=== PATIENT | male | born 1950 | race African-American/Black ===

== ENCOUNTER 2018-09-11 12:00 | Inpatient (IN) | payer MEDICARE, OTHER ==
[~2018-09-11] VITALS: Ht 177.8 cm; Wt 77.1 kg
[2018-09-11 12:03] VITALS: BP 148/72
[2018-09-11] MEDS ORDERED: METOPROLOL SUC100 MG ORAL (12:27)
[2018-09-11] MEDS ORDERED: ATORVASTATIN CA40 MG ORAL (12:27)
[2018-09-11] MEDS ORDERED: FLOMAX0.4 MG ORAL (12:27)
[2018-09-11] MEDS ORDERED: BENZTROPINE ME0.5 MG PO (12:27)
[2018-09-11] MEDS ORDERED: MELOXICAM7.5 MG PO (12:27)
[2018-09-11] MEDS ORDERED: HALOPERIDOL1 MG ORAL (12:27)
[2018-09-11] MEDS ORDERED: KEPPRA500 M4 ORAL (12:27)
[2018-09-11] MEDS ORDERED: Sodium Chloride 500ML 500 ML IV ONE ×2 (12:42→14:45)
[2018-09-11 13:16] LABS: BASOPHILS % (AUTO) 1.3 % (0.0-2.0); EOSINOPHILS % (AUTO) 1.2 % (0.0-3.0); HEMATOCRIT 36.4 % (42.0-52.0); HEMOGLOBIN 12.6 G/DL (14.2-18.0); LYMPHOCYTES % (AUTO) 33.8 % (20.0-45.0); MEAN CORPUSCULAR VOLUME 94 FL (80-99); NEUTROPHILS % (AUTO) 50.7 % (45.0-75.0); PLATELET COUNT 189 K/UL (150-450); RED BLOOD COUNT 3.86 M/UL (4.70-6.10); RED CELL DISTRIBUTION WIDTH 12.2 % (11.6-14.8); WHITE BLOOD COUNT 6.3 K/UL (4.8-10.8)
--- NOTE | 2018-09-11 13:19 | Emergency Room Report ---
History of Present Illness General Chief Complaint: Generalized Weakness Source: Medical Record, EMS Present Illness HPI Patient present from nursing facility by paramedics it was reported the patient appeared to weaker than usual Fatigue decreased oral intake Patient himself requires significant arousal in order to open eyes however is not verbal with us History of present illness is significantly limited There was no reports of vomiting or diarrhea There was no other reports of trauma The onset of change in mental status is unclear Allergies: Coded Allergies: PENICILLINS (Verified Allergy, Unknown, 09/11/18) Patient History Past Medical History: see triage record Pertinent Family History: none Reviewed Nursing Documentation: PMH: Agreed; PSxH: Agreed Nursing Documentation-PMH Past Medical History: No History, Except For Hx Cardiac Problems: Yes - CAD, [place] History Of Psychiatric Problem: Yes - Paranoid schizophrenia Hx Seizures: Yes Review of Systems All Other Systems: limited - Other than the ones mentioned in the history of present illness all others are reviewed however they do stay limited due to the patient's mental status Physical Exam Vital Signs Date Time Temp Pulse Resp B/P (MAP) Pulse Ox O2 Delivery O2 Flow Rate FiO2 09/11/18 12:03 60 18 Room Air 09/11/18 12:03 97.5 148/72 96 Sp02 EP Interpretation: reviewed, normal General Appearance: no apparent distress Head: normocephalic, atraumatic Eyes: bilateral eye PERRL ENT: dry mucus membranes Neck: supple Respiratory: lungs clear, no retraction, no accessory muscle use Cardiovascular #1: regular rate, rhythm, no edema Gastrointestinal: non tender, soft Musculoskeletal: other - Patient has left hand contracted, responds to physical stimuli however not following commands Neurologic: responsive - To physical stimuli Skin: normal color, no rash Lymphatic: no adenopathy Medical Decision Making Diagnostic Impression: Primary Impression: Weakness Additional Impressions: Dehydration Encephalopathy ER Course Patient is a fairly complex patient with multiple differential to consideration including but not limited to cardiac cardiopulmonary, neurological, neurosurgical, infectious and vascular emergencies Patient CT head shows previous CVAs no obvious acute pathology Blood work is appropriate patient has further hydration provided Given the patient's weakness and change in status acute CVA needs to be still considered Patient's last well-known is over 24 hours and the patient is not a candidate for any thrombotic therapy Labs Test 09/11/18 12:30 09/11/18 13:29 09/11/18 13:30 White Blood Count 6.3 K/UL (4.8-10.8) Red Blood Count 3.86 M/UL (4.70-6.10) Hemoglobin 12.6 G/DL (14.2-18.0) Hematocrit 36.4 % (42.0-52.0) Mean Corpuscular Volume 94 FL (80-99) Mean Corpuscular Hemoglobin 32.8 PG (27.0-31.0) Mean Corpuscular Hemoglobin Concent 34.7 G/DL (32.0-36.0) Red Cell Distribution Width 12.2 % (11.6-14.8) Platelet Count 189 K/UL (150-450) Mean Platelet Volume 5.6 FL (6.5-10.1) Neutrophils (%) (Auto) 50.7 % (45.0-75.0) Lymphocytes (%) (Auto) 33.8 % (20.0-45.0) Monocytes (%) (Auto) 13.0 % (1.0-10.0) Eosinophils (%) (Auto) 1.2 % (0.0-3.0) Basophils (%) (Auto) 1.3 % (0.0-2.0) Sodium Level 141 MMOL/L (136-145) Potassium Level 3.7 MMOL/L (3.5-5.1) Chloride Level 109 MMOL/L (98-107) Carbon Dioxide Level 25 MMOL/L (21-32) Anion Gap 7 mmol/L (5-15) Blood Urea Nitrogen 13 mg/dL (7-18) Creatinine 0.7 MG/DL (0.55-1.30) Estimat Glomerular Filtration Rate > 60 mL/min (>60) Glucose Level 85 MG/DL (74-106) Calcium Level 8.4 MG/DL (8.5-10.1) Total Bilirubin 0.7 MG/DL (0.2-1.0) Aspartate Amino Transf (AST/SGOT) 44 U/L (15-37) Alanine Aminotransferase (ALT/SGPT) 25 U/L (12-78) Alkaline Phosphatase 81 U/L (46-116) Total Creatine Kinase 1015 U/L (26-308) Creatine Kinase MB 14.4 NG/ML (0.0-3.6) Creatine Kinase MB Relative Index 1.4 Troponin I 0.007 ng/mL (0.000-0.056) Pro-B-Type Natriuretic Peptide 1344 pg/mL (0-125) Total Protein 6.5 G/DL (6.4-8.2) Albumin 3.1 G/DL (3.4-5.0) Globulin 3.4 g/dL Albumin/Globulin Ratio 0.9 (1.0-2.7) Lipase 41 U/L (73-393) Urine Color Yellow Urine Appearance Clear Urine pH 5 (4.5-8.0) Urine Specific [place] 1.025 (1.005-1.035) Urine Protein 2+ (NEGATIVE) Urine Glucose (UA) 1+ (NEGATIVE) Urine Ketones 1+ (NEGATIVE) Urine Blood 3+ (NEGATIVE) Urine Nitrite Negative (NEGATIVE) Urine Bilirubin Negative (NEGATIVE) Urine Urobilinogen 1 MG/DL (0.0-1.0) Urine Leukocyte Esterase 1+ (NEGATIVE) Urine RBC 2-4 /HPF (0 - 0) Urine WBC 0-2 /HPF (0 - 0) Urine Squamous Epithelial Cells Occasional /LPF Urine Bacteria Occasional /HPF (NONE) Urine Mucus Moderate /LPF (NONE/OCC) Rhythm Strip Diag. Results EP Interpretation: yes Rate: 78 Rhythm: NSR, no PVC's, no ectopy Chest X-Ray Diagnostic Results Chest X-Ray Diagnostic Results : Chest X-Ray Ordered: Yes # of Views/Limited/Complete: 1 View Indication: Chest Pain EP Interpretation: Yes Interpretation: no consolidation, no effusion, no pneumothorax Impression: No acute disease Electronically Signed by: Tino Bowser DO CT/MRI/US Diagnostic Results CT/MRI/US Diagnostic Results : Impression CT headImpression: Chronic and age-related changes, as described. Multiple old infarcts Negative for acute intracranial bleed or mass effect Last Vital Signs Date Time Temp Pulse Resp B/P (MAP) Pulse Ox O2 Delivery O2 Flow Rate FiO2 09/11/18 12:03 97.5 60 18 148/72 96 Room Air Status: improved Disposition: ADMITTED INPATIENT Condition: Serious Referrals: NON PHYSICIAN (PCP) Tino Bowser DO Sep 11, 2018 13:19
[2018-09-11 13:35] VITALS: BP 107/57
[2018-09-11 13:52] LABS: APPEARANCE,URINE CLEAR; BILIRUBIN, URINE NEGATIVE (NEGATIVE); GLUCOSE, URINE (UA) 1+ (NEGATIVE); KETONES,URINE 1+ (NEGATIVE); LEUKOCYTE ESTERASE ,URINE 1+ (NEGATIVE); NITRITE,URINE NEGATIVE (NEGATIVE); PH,URINE 5 (4.5-8.0); PROTEIN,URINE 2+ (NEGATIVE); UROBILINOGEN,URINE 1 MG/DL (0.0-1.0)
[2018-09-11 13:52] LABS: ANION GAP 7 mmol/L (5-15); BLOOD UREA NITROGEN 13 mg/dL (7-18); CALCIUM 8.4 MG/DL (8.5-10.1); CARBON DIOXIDE 25 MMOL/L (21-32); CHLORIDE 109 MMOL/L (98-107); CREATININE 0.7 MG/DL (0.55-1.30); POTASSIUM 3.7 MMOL/L (3.5-5.1); SODIUM 141 MMOL/L (136-145)
[2018-09-11 14:01] LABS: COLOR,URINE YELLOW
[2018-09-11 14:08] LABS: ALANINE AMINOTRANSFERASE 25 U/L (12-78); ALBUMIN 3.1 G/DL (3.4-5.0); ALBUMIN/GLOBULIN RATIO 0.9 (1.0-2.7); ALKALINE PHOSPHATASE 81 U/L (46-116); ASPARTATE AMINO TRANSFERASE 44 U/L (15-37); BILIRUBIN,TOTAL 0.7 MG/DL (0.2-1.0); CKMB 14.4 NG/ML (0.0-3.6); CREATINE KINASE 1015 U/L (26-308)
--- NOTE | 2018-09-11 14:18 | Diagnostic Imaging Report ---
Indications: Altered mental status Technique: Spiral acquisitions obtained through the brain. Angled axial and coronal 5 x 5 mm slices were reconstructed. Total dose length product 1277.56 mGycm. CTDI vol(s) 70.38 mGy. Dose reduction achieved using automated exposure control Comparison: None. Findings: There is a small area of encephalomalacia in the right parietal lobe near the vertex. There is also some encephalomalacia in the right parietal operculum and of the left posterior parietal lobe, as well as old infarcts in the bilateral cerebellar hemispheres.. There is mild age-related enlargement of the ventricles and extra axial CSF spaces. There is considerable periventricular deep white matter low-attenuation, consistent with chronic ischemic change. No acute intracranial hemorrhage or edema. No mass effect nor midline shift. The calvarium is intact. Visualized orbits and sinuses are unremarkable. The mastoids are clear. Impression: Chronic and age-related changes, as described. Multiple old infarcts Negative for acute intracranial bleed or mass effect The CT scanner at [facility] is accredited by the [employer] and the scans are performed using protocols designed to limit radiation exposure to as low as reasonably achievable to attain images of sufficient resolution adequate for diagnostic evaluation.
--- NOTE | 2018-09-11 14:19 | Diagnostic Imaging Report ---
Indication: Chest pain Technique: One view of the chest Comparison: none Findings: The heart is borderline enlarged. The aorta is tortuous and calcified. Upper mediastinum is unremarkable. The lungs and pleural spaces are clear Impression: Borderline cardiomegaly No acute process
[2018-09-11 15:30] VITALS: BP 154/65
[2018-09-11 17:30] VITALS: BP 156/90
[2018-09-11] MEDS ORDERED: HALDOL5 MG ORAL (17:46)
[2018-09-11 19:40] VITALS: BP 142/66
[2018-09-11 20:30] VITALS: BP 163/80
[2018-09-11] MEDS: Heparin 5000 units/ml inj SUBQ SCH (22:30)
[2018-09-11] MEDS: Metoprolol Succinate XL 100mg tab ORAL SCH (22:53)
[2018-09-11] MEDS: Atorvastatin 80mg tab ORAL SCH (22:53)
[2018-09-11] MEDS: 1/2NS w/KCl 20mEq 1000ml 1,000 ML IV SCH (22:54)
[2018-09-12] VITALS: BP 151/83
[2018-09-12 04:00] VITALS: BP 161/71
[2018-09-12 07:48] LABS: BASOPHILS % (AUTO) 0.9 % (0.0-2.0); EOSINOPHILS % (AUTO) 1.1 % (0.0-3.0); HEMATOCRIT 39.3 % (42.0-52.0); HEMOGLOBIN 13.6 G/DL (14.2-18.0); LYMPHOCYTES % (AUTO) 17.7 % (20.0-45.0); MEAN CORPUSCULAR VOLUME 97 FL (80-99); MONOCYTES % (AUTO) 10.6 % (1.0-10.0); NEUTROPHILS % (AUTO) 69.8 % (45.0-75.0); PLATELET COUNT 195 K/UL (150-450); RED BLOOD COUNT 4.06 M/UL (4.70-6.10); RED CELL DISTRIBUTION WIDTH 12.2 % (11.6-14.8); WHITE BLOOD COUNT 7.9 K/UL (4.8-10.8)
[2018-09-12 07:54] LABS: ANION GAP 8 mmol/L (5-15); BLOOD UREA NITROGEN 9 mg/dL (7-18); CARBON DIOXIDE 25 MMOL/L (21-32); CHLORIDE 106 MMOL/L (98-107); CREATININE 0.6 MG/DL (0.55-1.30); POTASSIUM 4.7 MMOL/L (3.5-5.1); SODIUM 139 MMOL/L (136-145)
[2018-09-12 08:00] VITALS: BP 122/68
[2018-09-12] MEDS: Benztropine 1mg tab ORAL SCH ×2 (08:56→18:00)
[2018-09-12] MEDS: Tamsulosin 0.4mg cap ORAL SCH ×2 (08:56→18:00)
[2018-09-12] MEDS: Metoprolol Succinate XL 100mg tab ORAL SCH (08:57)
[2018-09-12] MEDS: Heparin 5000 units/ml inj SUBQ SCH ×2 (08:57→20:35)
[2018-09-12] MEDS ORDERED: Metoprolol Succinate XL 100mg tab ORAL SCH (09:00)
[2018-09-12] MEDS ORDERED: LORazepam Inj 2mg/ml 1ml IM SCH (11:12)
[2018-09-12] MEDS: DiphenhydrAMINE 50mg/ml Inj IM SCH ×2 (11:12→12:30)
[2018-09-12] MEDS ORDERED: Haloperidol 5mg/ml Inj IM SCH (11:14)
[2018-09-12 12:00] VITALS: BP 128/74
--- NOTE | 2018-09-12 12:11 | Consultation ---
History of Present Illness General Chief Complaint: Generalized Weakness Present Illness HPI 68-year-old -[place] male who was transferred from [facility] to this hospital due to confusion and recurrent falls. the pt is disorganized and agitated the pt is confused and unable to provide hx. the pt has memory impairment Allergies: Coded Allergies: PENICILLINS (Verified Allergy, Unknown, 09/11/18) Medication History Scheduled Atorvastatin Calcium* (Atorvastatin Calcium*), 80 MG ORAL BEDTIME, (Reported) Benztropine Mesylate* (Cogentin*), 1 MG PO BID, (Reported) Haloperidol (Haloperidol), 5 MG ORAL BID, (Reported) Levetiracetam (Keppra), 500 MG ORAL EVERY 12 HOURS, (Reported) Meloxicam* (Meloxicam*), 7.5 MG PO BID, (Reported) Metoprolol Succinate* (Metoprolol Succinate*), 100 MG ORAL DAILY, (Reported) Tamsulosin HCl (Flomax), 0.4 MG ORAL BID, (Reported) Discontinued Medications Haloperidol* (Haldol*), 5 MG ORAL BID, (Reported) Discontinued Reason: Prescription changed Patient History Limited by: medical condition History Provided By: Patient, Medical Record, PMD Healthcare decision maker N Resuscitation status Full Code Advanced Directive on File Past Medical/Surgical History Past Medical/Surgical History: (1) Dehydration (2) Encephalopathy (3) Weakness Review of Systems Psychiatric: Reports: prior hx, anxiety, depressed feelings Physical Exam General Appearance: alert, lethargic, confused, moderate distress, agitated Last 24 Hour Vital Signs Date Time Temp Pulse Resp B/P (MAP) Pulse Ox O2 Delivery O2 Flow Rate FiO2 09/12/18 10:16 69 122/68 09/12/18 09:00 Room Air 09/12/18 08:57 69 122/68 09/12/18 06:00 65 62 09/12/18 04:00 97.8 57 19 161/71 (101) 96 09/12/18 00:06 Room Air 09/12/18 00:00 98.3 67 20 151/83 (105) 96 09/11/18 22:53 67 163/80 09/11/18 20:30 97.8 67 20 163/80 (107) 95 09/11/18 19:45 98.0 72 16 142/66 99 Room Air 09/11/18 19:40 98.0 72 16 142/66 99 Room Air 09/11/18 17:30 98.3 62 15 156/90 99 Room Air 09/11/18 15:30 97.9 57 19 154/65 97 Room Air 09/11/18 13:35 97.8 58 14 107/57 100 Room Air Intake and Output 09/11/18 09/12/18 19:00 07:00 Intake Total 1000 ml 120 ml Output Total 0 ml 300 ml Balance 1000 ml -180 ml Intake Oral 120 ml IV Total 1000 ml Output Urine Total 0 ml 300 ml # Bowel Movements 1 Laboratory Tests Test 09/11/18 12:30 09/11/18 13:29 09/11/18 13:30 09/12/18 06:45 White Blood Count 6.3 K/UL (4.8-10.8) 7.9 K/UL (4.8-10.8) Red Blood Count 3.86 M/UL (4.70-6.10) L 4.06 M/UL (4.70-6.10) L Hemoglobin 12.6 G/DL (14.2-18.0) L 13.6 G/DL (14.2-18.0) L Hematocrit 36.4 % (42.0-52.0) L 39.3 % (42.0-52.0) L Mean Corpuscular Volume 94 FL (80-99) 97 FL (80-99) Mean Corpuscular Hemoglobin 32.8 PG (27.0-31.0) H 33.5 PG (27.0-31.0) H Mean Corpuscular Hemoglobin Concent 34.7 G/DL (32.0-36.0) 34.6 G/DL (32.0-36.0) Red Cell Distribution Width 12.2 % (11.6-14.8) 12.2 % (11.6-14.8) Platelet Count 189 K/UL (150-450) 195 K/UL (150-450) Mean Platelet Volume 5.6 FL (6.5-10.1) L 6.5 FL (6.5-10.1) Neutrophils (%) (Auto) 50.7 % (45.0-75.0) 69.8 % (45.0-75.0) Lymphocytes (%) (Auto) 33.8 % (20.0-45.0) 17.7 % (20.0-45.0) L Monocytes (%) (Auto) 13.0 % (1.0-10.0) H 10.6 % (1.0-10.0) H Eosinophils (%) (Auto) 1.2 % (0.0-3.0) 1.1 % (0.0-3.0) Basophils (%) (Auto) 1.3 % (0.0-2.0) 0.9 % (0.0-2.0) Sodium Level 141 MMOL/L (136-145) 139 MMOL/L (136-145) Potassium Level 3.7 MMOL/L (3.5-5.1) 4.7 MMOL/L (3.5-5.1) Chloride Level 109 MMOL/L (98-107) H 106 MMOL/L (98-107) Carbon Dioxide Level 25 MMOL/L (21-32) 25 MMOL/L (21-32) Anion Gap 7 mmol/L (5-15) 8 mmol/L (5-15) Blood Urea Nitrogen 13 mg/dL (7-18) 9 mg/dL (7-18) Creatinine 0.7 MG/DL (0.55-1.30) 0.6 MG/DL (0.55-1.30) Estimat Glomerular Filtration Rate > 60 mL/min (>60) > 60 mL/min (>60) Glucose Level 85 MG/DL (74-106) 86 MG/DL (74-106) Calcium Level 8.4 MG/DL (8.5-10.1) L 9.0 MG/DL (8.5-10.1) Total Bilirubin 0.7 MG/DL (0.2-1.0) Aspartate Amino Transf (AST/SGOT) 44 U/L (15-37) H Alanine Aminotransferase (ALT/SGPT) 25 U/L (12-78) Alkaline Phosphatase 81 U/L (46-116) Total Creatine Kinase 1015 U/L (26-308) H Creatine Kinase MB 14.4 NG/ML (0.0-3.6) H Creatine Kinase MB Relative Index 1.4 Troponin I 0.007 ng/mL (0.000-0.056) Pro-B-Type Natriuretic Peptide 1344 pg/mL (0-125) H Total Protein 6.5 G/DL (6.4-8.2) Albumin 3.1 G/DL (3.4-5.0) L Globulin 3.4 g/dL Albumin/Globulin Ratio 0.9 (1.0-2.7) L Lipase 41 U/L (73-393) L Urine Color Yellow Urine Appearance Clear Urine pH 5 (4.5-8.0) Urine Specific [place] 1.025 (1.005-1.035) Urine Protein 2+ (NEGATIVE) H Urine Glucose (UA) 1+ (NEGATIVE) H Urine Ketones 1+ (NEGATIVE) H Urine Blood 3+ (NEGATIVE) H Urine Nitrite Negative (NEGATIVE) Urine Bilirubin Negative (NEGATIVE) Urine Urobilinogen 1 MG/DL (0.0-1.0) H Urine Leukocyte Esterase 1+ (NEGATIVE) H Urine RBC 2-4 /HPF (0 - 0) H Urine WBC 0-2 /HPF (0 - 0) Urine Squamous Epithelial Cells Occasional /LPF Urine Bacteria Occasional /HPF (NONE) Urine Mucus Moderate /LPF (NONE/OCC) H Magnesium Level 1.2 MG/DL (1.8-2.4) L Height (Feet): 5 Height (Inches): 10.00 Weight (Pounds): 170 Medications Current Medications Medications (Trade) Dose Ordered Sig/Tessa Route PRN Reason Start Time Stop Time Status Last Admin Dose Admin Amlodipine Besylate (Norvasc) 10 mg DAILY ORAL 09/12/18 09:03 10/12/18 09:02 09/12/18 10:16 Atorvastatin Calcium (Lipitor) 80 mg BEDTIME ORAL 09/11/18 22:30 10/11/18 22:29 09/11/18 22:53 Benztropine Mesylate (Cogentin) 1 mg BID ORAL 09/12/18 09:00 10/12/18 08:59 09/12/18 08:56 Diphenhydramine HCl (Benadryl) 50 mg ONCE IM 09/12/18 11:12 09/12/18 12:12 Haloperidol (Haldol) 5 mg BID ORAL 09/12/18 09:00 10/12/18 08:59 09/12/18 08:56 Haloperidol Lactate (Haldol) 5 mg ONCE IM 09/12/18 11:14 09/12/18 12:14 Heparin Sodium (Porcine) (Heparin 5000 units/ml) 5,000 units EVERY 12 HOURS SUBQ 09/11/18 22:30 10/11/18 22:29 09/12/18 08:57 Levetiracetam (Keppra) 500 mg EVERY 12 HOURS ORAL 09/11/18 22:30 10/11/18 22:29 09/12/18 08:56 Lorazepam (Ativan 2mg/ml 1ml) 2 mg ONCE IM 09/12/18 11:12 09/12/18 12:12 Magnesium Sulfate 100 ml @ 100 mls/hr Q1H IVPB 09/12/18 09:30 09/12/18 13:29 09/12/18 10:16 Metoprolol Succinate (Toprol XL) 100 mg DAILY ORAL 09/11/18 22:30 10/12/18 08:59 09/12/18 08:57 Quetiapine Fumarate (SEROquel) 25 mg Q4H PRN ORAL AGITATION 09/12/18 10:45 10/12/18 10:44 09/12/18 10:54 Sodium 1,000 ml @ 65 mls/hr [id number] IV 09/11/18 22:15 10/11/18 22:14 09/11/18 22:54 Tamsulosin HCl (Flomax) 0.4 mg BID ORAL 09/12/18 09:00 10/12/18 08:59 09/12/18 08:56 Assessment/Plan Problem List: (1) Encephalopathy ICD Codes: G93.40 - Encephalopathy, unspecified SNOMED: 21748925 Status: stable Assessment/Plan seroquel prn haldol im prn dc sitter soft restraints Priscilla Flood MD Sep 12, 2018 12:11
[2018-09-12] MEDS ORDERED: DiphenhydrAMINE 50mg/ml Inj IM SCH (12:30)
[2018-09-12] MEDS: 1/2NS w/KCl 20mEq 1000ml 1,000 ML IV SCH (15:54)
[2018-09-12 16:00] VITALS: BP 157/74
[2018-09-12 20:00] VITALS: BP 145/73
--- NOTE | 2018-09-12 20:15 | History and Physical Report ---
DATE OF ADMISSION: 09/11/2018 CHIEF COMPLAINT: Recurrent falls. HISTORY OF PRESENT ILLNESS: This is a 68-year-old -[place] male who was transferred from [facility] to this hospital due to confusion and recurrent falls. The patient is very confused and unable to give any further information. PAST MEDICAL HISTORY: 1. Organic brain syndrome. 2. Degenerative joint disease. 3. Hypertensive cardiovascular disease. 4. Hyperlipidemia. 5. Benign prostatic hypertrophy. MEDICATIONS: Benztropine, Haldol, meloxicam, metoprolol succinate, atorvastatin, Keppra, and tamsulosin. ALLERGIES: No known allergies. FAMILY HISTORY: Unable to obtain due to mental status. SOCIAL HISTORY: Unable to obtain due to mental status. REVIEW OF SYSTEMS: Unable to obtain due to mental status. PHYSICAL EXAMINATION: GENERAL: This is an elderly cachectic -[place] male, who is in no acute distress. VITAL SIGNS: Blood pressure 161/71, pulse is 57, sinus bradycardia, respirations 20, and temperature 97.8. HEENT: Head is normocephalic and atraumatic. Pupils are equal, round, and reactive to light and accommodation consensually. NECK: Supple. Trachea midline. There was no lymphadenopathy or thyromegaly. LUNGS: Clear to auscultation and percussion. HEART: Regular rate and rhythm without rubs, murmurs, or gallops. ABDOMEN: Soft and nontender. Bowel sounds were active. EXTREMITIES: No clubbing, cyanosis, or edema. NEUROLOGICAL: He is confused. There were no gross focal findings. LABORATORY AND ANCILLARY DATA: CBC within normal limits. Chemistry, magnesium level 1.2, otherwise within normal limits. EKG, poor quality due to motion artifacts. ASSESSMENT: 1. Advanced dementia. 2. Hypertensive cardiovascular disease. PLAN: 1. The patient's blood pressure is still high despite medications, so the patient will need revision of his therapy. 2. Correct hypomagnesemia. 3. Physical therapy evaluation. Ashley Miles M.D. DR: TEAGAN JOB#: [id number] CC:
[2018-09-12] MEDS: Atorvastatin 80mg tab ORAL SCH (20:34)
[2018-09-13] VITALS (7 sets, daily range): BP systolic 127–172; BP diastolic 70–90
[2018-09-13] MEDS: 1/2NS w/KCl 20mEq 1000ml 1,000 ML IV SCH ×2 (05:03→21:15)
--- NOTE | 2018-09-13 09:29 | General Progress Note ---
Assessment/Plan Assessment/Plan Recurrent falls. Trial of PT. Hypomagnesemia - IV Magnesium. HTN CVD check 2D Echo. Correct BP. Subjective Allergies: Coded Allergies: PENICILLINS (Verified Allergy, Unknown, 09/11/18) Subjective Very confused. Objective Last 24 Hour Vital Signs Date Time Temp Pulse Resp B/P (MAP) Pulse Ox O2 Delivery O2 Flow Rate FiO2 09/13/18 04:00 97.9 67 20 160/89 (112) 100 09/13/18 00:10 98.1 60 20 151/70 (97) 96 09/12/18 21:14 Room Air 09/12/18 20:00 97.2 57 20 145/73 (97) 98 09/12/18 16:00 98.3 70 18 157/74 (101) 96 09/12/18 12:00 98.3 72 18 128/74 (92) 96 09/12/18 10:16 69 122/68 Intake and Output 09/12/18 09/13/18 18:59 06:59 Intake Total 780 ml Balance 780 ml IV Total 780 ml # Voids 8 3 # Bowel Movements 6 2 Height (Feet): 5 Height (Inches): 10.00 Weight (Pounds): 170 Objective CV RR Lungs CTA Abd SNT. BS + E No CCE Neuro confused Ashley Miles MD Sep 13, 2018 09:29
[2018-09-13] MEDS: Benztropine 1mg tab ORAL SCH ×2 (09:54→18:26)
[2018-09-13] MEDS: Metoprolol Succinate XL 100mg tab ORAL SCH (09:54)
[2018-09-13] MEDS: Tamsulosin 0.4mg cap ORAL SCH ×2 (09:54→18:26)
[2018-09-13] MEDS: Heparin 5000 units/ml inj SUBQ SCH ×2 (09:55→21:14)
--- NOTE | 2018-09-13 14:12 | General Progress Note ---
Assessment/Plan Problem List: (1) Encephalopathy ICD Codes: G93.40 - Encephalopathy, unspecified SNOMED: 50744147 Status: unchanged Assessment/Plan seroquel prn haldol im prn dc sitter soft restraints Subjective Neurologic/Psychiatric: Reports: anxiety, depressed, emotional problems Allergies: Coded Allergies: PENICILLINS (Verified Allergy, Unknown, 09/11/18) Objective Last 24 Hour Vital Signs Date Time Temp Pulse Resp B/P (MAP) Pulse Ox O2 Delivery O2 Flow Rate FiO2 09/13/18 12:00 97.7 67 18 128/87 (101) 94 09/13/18 09:55 74 146/72 09/13/18 09:54 74 146/72 09/13/18 09:00 Room Air 09/13/18 08:00 98.9 74 18 146/72 (96) 98 09/13/18 04:00 97.9 67 20 160/89 (112) 100 09/13/18 00:10 98.1 60 20 151/70 (97) 96 09/12/18 21:14 Room Air 09/12/18 20:00 97.2 57 20 145/73 (97) 98 09/12/18 16:00 98.3 70 18 157/74 (101) 96 Intake and Output 09/12/18 09/13/18 19:00 07:00 Intake Total 65 ml 780 ml Balance 65 ml 780 ml IV Total 65 ml 780 ml # Voids 8 3 # Bowel Movements 6 2 Height (Feet): 5 Height (Inches): 10.00 Weight (Pounds): 170 General Appearance: alert, confused, moderate distress, agitated Priscilla Flood MD Sep 13, 2018 14:12
[2018-09-13] MEDS ORDERED: D5 1/2NS 1000ml IV ONE (17:40)
[2018-09-13] MEDS: Atorvastatin 80mg tab ORAL SCH (21:13)
[2018-09-14] VITALS (8 sets, daily range): BP systolic 121–161; BP diastolic 58–85
[2018-09-14] MEDS: Benztropine 1mg tab ORAL SCH ×2 (08:40→17:26)
[2018-09-14] MEDS: Tamsulosin 0.4mg cap ORAL SCH ×2 (08:40→17:25)
[2018-09-14] MEDS: Heparin 5000 units/ml inj SUBQ SCH ×2 (08:41→22:01)
[2018-09-14] MEDS: Metoprolol Succinate XL 100mg tab ORAL SCH (08:43)
[2018-09-14] MEDS: 1/2NS w/KCl 20mEq 1000ml 1,000 ML IV SCH (11:38)
[2018-09-14] MEDS ORDERED: Benztropine Mesylate ORAL (12:37)
[2018-09-14] MEDS ORDERED: LIPITOR80 MG ORAL (12:37)
[2018-09-14] MEDS ORDERED: SEROQUEL25 MG ORAL (12:37)
[2018-09-14] MEDS ORDERED: NORVASC10 MG ORAL (12:37)
[2018-09-14] MEDS ORDERED: FLOMAX0.4 MG ORAL (12:37)
[2018-09-14] MEDS ORDERED: METOPROLOL SUC100 MG ORAL (12:37)
[2018-09-14] MEDS ORDERED: KEPPRA500 MG ORAL (12:37)
[2018-09-14] MEDS ORDERED: HALDOL5 MG ORAL (12:37)
--- NOTE | 2018-09-14 12:38 | General Progress Note ---
Assessment/Plan Assessment/Plan Recurrent falls. Trial of PT. Hypomagnesemia - IV Magnesium. HTN CVD check 2D Echo. Correct BP DC to SNF. Subjective Allergies: Coded Allergies: PENICILLINS (Verified Allergy, Unknown, 09/11/18) Subjective Very confused. Objective Last 24 Hour Vital Signs Date Time Temp Pulse Resp B/P (MAP) Pulse Ox O2 Delivery O2 Flow Rate FiO2 09/14/18 09:00 Room Air 09/14/18 08:51 90 121/71 09/14/18 08:43 90 121/71 09/14/18 08:00 99.4 90 19 121/71 (88) 97 09/14/18 06:50 59 157/58 (91) 09/14/18 04:31 97.2 58 18 161/85 (110) 98 09/14/18 00:31 97.4 59 18 149/79 (102) 98 09/13/18 22:27 Room Air 09/13/18 20:00 97.1 63 18 127/77 (94) 97 09/13/18 16:00 98.1 61 18 164/90 (114) 98 Intake and Output 09/13/18 09/14/18 18:59 06:59 Intake Total 1455 ml 585 ml Balance 1455 ml 585 ml IV Total 455 ml 585 ml Other 1000 ml # Voids 4 3 # Bowel Movements 1 2 Height (Feet): 5 Height (Inches): 10.00 Weight (Pounds): 170 Objective CV RR Lungs CTA Abd SNT. BS + E No CCE Neuro confused Ashley Miles MD Sep 14, 2018 12:38
[2018-09-14] MEDS: Atorvastatin 80mg tab ORAL SCH (22:01)
[2018-09-15] VITALS (7 sets, daily range): BP systolic 116–158; BP diastolic 73–97
[2018-09-15] MEDS: 1/2NS w/KCl 20mEq 1000ml 1,000 ML IV SCH ×2 (04:49→18:11)
[2018-09-15] MEDS: Metoprolol Succinate XL 100mg tab ORAL SCH (09:51)
[2018-09-15] MEDS: Tamsulosin 0.4mg cap ORAL SCH ×2 (09:52→18:00)
[2018-09-15] MEDS: Heparin 5000 units/ml inj SUBQ SCH ×2 (09:52→21:23)
[2018-09-15] MEDS: Benztropine 1mg tab ORAL SCH ×2 (09:52→18:00)
--- NOTE | 2018-09-15 13:05 | General Progress Note ---
Assessment/Plan Assessment/Plan Recurrent falls. Trial of PT. Hypomagnesemia - IV Magnesium. HTN CVD check 2D Echo. Correct BP DC to SNF. Awaiting bed @ [facility]. Subjective Allergies: Coded Allergies: PENICILLINS (Verified Allergy, Unknown, 09/11/18) Subjective Very confused. Objective Last 24 Hour Vital Signs Date Time Temp Pulse Resp B/P (MAP) Pulse Ox O2 Delivery O2 Flow Rate FiO2 09/15/18 09:52 65 148/79 09/15/18 09:51 65 149/79 09/15/18 04:00 98.1 61 20 116/97 (103) 98 09/15/18 00:00 97.4 68 20 152/86 (108) 97 09/14/18 21:00 Room Air 09/14/18 20:00 97.4 69 20 155/83 (107) 95 09/14/18 16:00 99.1 97 17 133/80 (97) 98 Intake and Output 09/14/18 09/15/18 18:59 06:59 Intake Total 800 ml 780 ml Balance 800 ml 780 ml IV Total 780 ml Other 800 ml # Voids 1 3 Height (Feet): 5 Height (Inches): 10.00 Weight (Pounds): 170 Objective CV RR Lungs CTA Abd SNT. BS + E No CCE Neuro confused Ashley Miles MD Sep 15, 2018 13:05
[2018-09-15] MEDS ORDERED: Haloperidol 5mg/ml Inj IM SCH (13:15)
[2018-09-15] MEDS ORDERED: DiphenhydrAMINE 50mg/ml Inj IM SCH (13:15)
[2018-09-15] MEDS ORDERED: LORazepam Inj 2mg/ml 1ml IM SCH (13:15)
[2018-09-15] MEDS: Atorvastatin 80mg tab ORAL SCH (21:00)
[2018-09-16] VITALS: BP 157/80
[2018-09-16 04:00] VITALS: BP 156/80
[2018-09-16 08:07] VITALS: BP 161/78
[2018-09-16] MEDS: Tamsulosin 0.4mg cap ORAL SCH ×2 (08:20→17:11)
[2018-09-16] MEDS: Benztropine 1mg tab ORAL SCH ×2 (08:20→17:11)
[2018-09-16] MEDS: Metoprolol Succinate XL 100mg tab ORAL SCH (08:21)
[2018-09-16] MEDS: Heparin 5000 units/ml inj SUBQ SCH ×2 (08:24→23:22)
[2018-09-16] MEDS: 1/2NS w/KCl 20mEq 1000ml 1,000 ML IV SCH (09:34)
[2018-09-16 12:00] VITALS: BP 128/80
--- NOTE | 2018-09-16 15:52 | General Progress Note ---
Assessment/Plan Assessment/Plan Recurrent falls. Trial of PT. Hypomagnesemia - IV Magnesium. HTN CVD check 2D Echo. Correct BP DC to SNF. [facility]. Subjective Allergies: Coded Allergies: PENICILLINS (Verified Allergy, Unknown, 09/11/18) Subjective Very confused. Objective Last 24 Hour Vital Signs Date Time Temp Pulse Resp B/P (MAP) Pulse Ox O2 Delivery O2 Flow Rate FiO2 09/16/18 12:00 97.2 63 19 128/80 (96) 98 09/16/18 08:21 56 161/78 09/16/18 08:20 56 161/78 09/16/18 08:07 98.4 56 19 161/78 (105) 100 09/16/18 08:00 Room Air 09/16/18 04:00 98.2 65 17 156/80 (105) 97 09/16/18 00:00 98.2 60 16 157/80 (105) 95 09/15/18 21:00 Room Air 09/15/18 20:00 97.8 98 20 158/76 (103) 98 09/15/18 16:00 98.0 76 18 151/83 (105) 98 Intake and Output 09/15/18 09/16/18 18:59 06:59 Intake Total 810 ml 650 ml Output Total 1000 ml Balance 810 ml -350 ml IV Total 260 ml 650 ml Other 550 ml Output Urine Total 1000 ml Height (Feet): 5 Height (Inches): 10.00 Weight (Pounds): 170 Objective CV RR Lungs CTA Abd SNT. BS + E No CCE Neuro confused Ashley Miles MD Sep 16, 2018 15:52
[2018-09-16 16:13] VITALS: BP 159/84
[2018-09-16 20:00] VITALS: BP 155/80
[2018-09-16] MEDS: Atorvastatin 80mg tab ORAL SCH (23:20)
--- NOTE | 2018-09-16 23:56 | General Progress Note ---
Assessment/Plan Problem List: (1) Encephalopathy ICD Codes: G93.40 - Encephalopathy, unspecified SNOMED: [id number] Status: stable Assessment/Plan seroquel prn haldol im prn dc sitter soft restraints Subjective Date patient seen: Sep 16, 2018 Neurologic/Psychiatric: Reports: anxiety, depressed, emotional problems Allergies: Coded Allergies: PENICILLINS (Verified Allergy, Unknown, 09/11/18) Objective Last 24 Hour Vital Signs Date Time Temp Pulse Resp B/P (MAP) Pulse Ox O2 Delivery O2 Flow Rate FiO2 09/16/18 21:00 Room Air 09/16/18 20:00 97.8 61 16 155/80 (105) 97 09/16/18 16:13 98.4 58 19 159/84 (109) 98 09/16/18 12:00 97.2 63 19 128/80 (96) 98 09/16/18 08:21 56 161/78 09/16/18 08:20 56 161/78 09/16/18 08:07 98.4 56 19 161/78 (105) 100 09/16/18 08:00 Room Air 09/16/18 04:00 98.2 65 17 156/80 (105) 97 09/16/18 00:00 98.2 60 16 157/80 (105) 95 Intake and Output 09/15/18 09/16/18 19:00 07:00 Intake Total 875 ml 585 ml Output Total 1000 ml Balance 875 ml -415 ml IV Total 325 ml 585 ml Other 550 ml Output Urine Total 1000 ml Height (Feet): 5 Height (Inches): 10.00 Weight (Pounds): 170 General Appearance: alert, confused, agitated Priscilla Flood MD Sep 16, 2018 23:56
[2018-09-17] VITALS: BP 129/78
[2018-09-17] MEDS: 1/2NS w/KCl 20mEq 1000ml 1,000 ML IV SCH ×2 (01:27→09:25)
[2018-09-17 04:50] VITALS: BP 140/82
[2018-09-17 08:00] VITALS: BP 127/73
[2018-09-17] MEDS: Benztropine 1mg tab ORAL SCH (09:20)
[2018-09-17] MEDS: Tamsulosin 0.4mg cap ORAL SCH (09:20)
[2018-09-17] MEDS: Metoprolol Succinate XL 100mg tab ORAL SCH (09:20)
[2018-09-17] MEDS: Heparin 5000 units/ml inj SUBQ SCH (09:23)
[2018-09-17 12:00] VITALS: BP 139/69
--- NOTE | 2018-09-18 00:08 | General Progress Note ---
Assessment/Plan Problem List: (1) Encephalopathy ICD Codes: G93.40 - Encephalopathy, unspecified SNOMED: [id number] Status: stable Assessment/Plan seroquel prn haldol im prn dc sitter soft restraints Subjective Date patient seen: Sep 17, 2018 Neurologic/Psychiatric: Reports: anxiety, depressed, emotional problems Allergies: Coded Allergies: PENICILLINS (Verified Allergy, Unknown, 09/11/18) Objective Last 24 Hour Vital Signs Date Time Temp Pulse Resp B/P (MAP) Pulse Ox O2 Delivery O2 Flow Rate FiO2 09/17/18 12:00 97.8 62 19 139/69 (92) 100 09/17/18 09:21 64 127/73 09/17/18 09:20 64 127/73 09/17/18 09:00 Room Air 09/17/18 08:00 98.3 64 20 127/73 (91) 94 09/17/18 04:50 98.0 71 17 140/82 (101) 96 Intake and Output 09/17/18 09/18/18 19:00 07:00 Intake Total 300 ml Balance 300 ml Intake Oral 300 ml Height (Feet): 5 Height (Inches): 10.00 Weight (Pounds): 170 General Appearance: alert, agitated Priscilla Flood MD Sep 18, 2018 00:08
--- NOTE | 2018-09-18 12:32 | Discharge Summary ---
Discharge Summary Discharge Summary _ DATE OF ADMISSION: 09/11/2018 DATE OF DISCHARGE: 09/17/2018 DISCHARGED BY: Dr. Miles REASON FOR ADMISSION: 68 years old male with past medical history of hypertensive cardiovascular disease, hyperlipidemia, benign prostatic hypertrophy, organic brain syndrome, degenerative joint disease, was sent from the [facility] due to confusion and recurrent falls . Laboratory workup was unremarkable. Troponin was negative. EKG revealed sinus rhythm, no acute ischemic changes. CXR revealed borderline cardiomegaly, but no acute process. CT of the head revealed chronic age-related changes, multiple old infarcts, but was negative for acute intracranial bleeding or mass-effect. Patient was admitted with diagnoses of encephalopathy , dehydration , advanced dementia, hypertensive cardiovascular disease. CONSULTANTS: psychiatrist [facility] COURSE: Patient admitted and started on gentle IV hydration. Blood pressure initially was uncontrolled. Antihypertensive medication regimen was up titrated. Blood pressure was managed with calcium channel chiki and beta-chiki. Blood pressures eventually stabilized. DVT prophylaxis provided. Hypomagnesemia was corrected. Flomax was continued. Fall precaution maintained. Patient was working with physical therapy. Psychiatrist seen and evaluated patient , and diagnosed patient with encephalopathy. Psychiatric medication regimen optimized. [facility] . Placement was arranged. Patient was stable for discharge to [facility] for continuation of care. Blood pressure prior to discharge 139/69. FINAL DIAGNOSES: Encephalopathy Advanced dementia Hypertensive cardiovascular disease Recurrent falls Hypomagnesemia Dehydration DISCHARGE MEDICATIONS: See Medication Reconciliation list. DISCHARGE INSTRUCTIONS: [facility] was [facility] to the [facility]. Follow up with medical doctor at the facility. I have been assigned to dictate discharge summary for this account. I was not involved in the patient's management. Sulema Menjivar NP Sep 18, 2018 12:32
== END 2018-09-17 14:46 | DRG 72 ==
LOC: EDBD 12:00 → EMR 13:10 → 3E 13:33 → EDBEDREQ 19:11 → 3E 09-12 08:03
DX: G93.40 Encephalopathy, unspecified (principal); F03.90 Unspecified dementia, unspecified severity, without behavioral disturbance, psychotic disturbance, mood disturbance, and anxiety; I11.9 Hypertensive heart disease without heart failure; R29.6 Repeated falls; E83.42 Hypomagnesemia; E86.0 Dehydration; M19.90 Unspecified osteoarthritis, unspecified site; Z88.0 Allergy status to penicillin
CPT/HCPCS: 36415; 70450; 71045; 80048; 80053; 80299; 81003; 82550; 82553; 83690; 83735; 83880; 84484; 85025; 87081; 93005; 93306; 93880; 99285